=== PATIENT | female | born 1990 | race Caucasian/White ===

== ENCOUNTER 2024-02-16 23:00 | Emergency (ER) | payer MEDICAID, SELFPAY ==
[2024-02-16 23:02] VITALS: BP 118/50; PULSE 118; RESP 16; TEMP 37.6; O2SAT 97
--- NOTE | 2024-02-16 23:38 | ED.GENADUL_ITS ---
Discharge Plan Disposition Patient Disposition: Transfer-Acute Inpatient Care Specific Acute Inpt Facility: [facility] Condition: Serious Discharge Details Clinical Impression: Intravenous drug abuse, Acute hypotension, Back pain, Hyperreflexia, Sepsis Primary Care Provider: Unknown,Unknown ED Provider: Cecille Peralta General Mode of arrival: ambulatory . Date/Time Provider Initiated Documentation: 02/16/24 23:07 . Limitations to Documentation: no limitations . Information obtained by: patient . HPI Narrative: 33yo F with hx of polysubstance use including prior hx IV drug use presenting with acute low back pain. Pain started about 6-7 days ago, is in the low lumbar region, and radiates to both hips and lateral thighs. Initially was just the right hip but now is both. Pain is severe, burning, and makes it hard to walk. Has had similar pain in the past diagnosed as sciatica but never this bad. Went to OSH yesterday and was prescribed flexeril which she last took about two hours ago. No numbness, tingling, or weakness. No urinary incontinence or retention, no bowel changes, no saddle anesthesia. No hx of spinal surgery or instrumentation; did have an epidural with childbirth 2.5 months ago. Treated for MRSA infection/cellulitis in leg several weeks ago, otherwise no recent illness. No trauma or falls. She is otherwise in her usual state of health with no headache, flank pain, neck pain, upper back pain, or other concerns. General Stated Complaint: Nk/Back Pain TRUPTI: 3 Review of Systems Narrative: see HPI Exam Narrative Exam Narrative: General: Alert, tearful Head: Normocephalic, atraumatic Neck: Trachea midline, ?Neck supple. ENT: ?MMM.? Cardiac: ?Tachycardiac, regular, no murmurs appreciated Resp: No respiratory distress. CTAB. Abd: ?Soft, non-distended, nontender : ?No suprapubic tenderness. No CVA tenderness. Extremities: ?No deformities.? No peripheral edema. Back: Left low lumbar & sacral parspinal muscle spasm. Bilateral lumbar and sacral paraspinal tenderness to palpation. No midline tenderness. Neuro: ? GCS 15.? Fluent speech, no dysarthria. Motor- 5/5 strength symmetric bilateral upper and lower extremities Sensation- ?Intact to light touch and symmetric multiple dermatomes including upper and lower extremities. No saddle anesthesia Rectal: Refused Reflexes- RLE: 1+ patellar and achilles LLE:. 3+ patellar, 4+ achilles c 2 beat clonus Course Vital Signs Vital signs: Vital Signs Temperature 37.6 C H 02/16/24 23:02 Pulse 118 H 02/16/24 23:02 Respiratory Rate 16 02/16/24 23:02 Blood Pressure 118/50 L 02/16/24 23:02 Pulse Oximetry 97 02/16/24 23:02 Temperature 37.6 C H 02/16/24 23:02 Temperature Source Tympanic 02/16/24 23:02 Pulse 118 H 02/16/24 23:02 Respiratory Rate 16 02/16/24 23:02 Respiratory Effort Normal, Non-Labored 02/16/24 23:13 Blood Pressure 118/50 L 02/16/24 23:02 Blood Pressure Position Sitting 02/16/24 23:02 Pulse Oximetry 97 02/16/24 23:02 Pain Level 10 02/16/24 23:12 Procedures Central Line Placement Right IJ: Time Out Performed: Yes Patient Placed on Monitor/Pulse Ox: Yes MD Prep: mask, gown and gloves Central Line Prep: Chlorhexidine scrub Local Anesthetic: Lidocaine 2% Amount of anesthesia used (mL): 3 Ultrasound Used for Placement: Yes Patient Tolerated Procedure: other (pt unable to remain still, unsuccessful) Complications: none Left IJ: Time Out Performed: Yes Patient Placed on Monitor/Pulse Ox: Yes MD Prep: mask, gown and gloves Central Line Prep: Chlorhexidine scrub Local Anesthetic: Lidocaine 2% Amount of anesthesia used (mL): 5 Ultrasound Used for Placement: Yes Patient Tolerated Procedure: other (pt unable to remain still, unsuccessful) Complications: hematoma at puncture site Medical Decision Making 33yo F with hx of polysubstance use including prior hx IV drug use presenting with acute low back pain. Pain started about 6-7 days ago, severe/burning, low lumbar and radiates to both hips and lateral thighs. Has had similar pain in the past diagnosed as sciatica but never this bad. Went to OSH yesterday and was prescribed flexeril which she last took about two hours ago. Denies any neurologic symptoms including any bowel/bladder issues. Tachycardiac on arrival though may be 2/t pain, vital signs otherwise reassuring. Palpable paraspinal muscle spasm in low lumbar/sacral region, no midline tenderness. Good strength and sensation BLE however asymmetric reflexes (slightly diminished patellar & achilles on right, hyperreflexia on left. Rectal refused. No fevers or midline pain and pt does have hx of radiculopathy, however in the setting of IVDU concerning for potential spinal epidural abscess (vs malignancy, fracture, MSK). Unable to get MRI overnight. Will treat pain initially with tylenol, toradol, PO valium for spasm and further clarify with labs. Labs reviewed as below, CBC with marked leukocytosis to 33, CMP with no actionable abnormalities, ESR & CRP both significantly elevated. Repeat pressures borderline hypotension, 90's/50's. With back pain, exam findings, and laboratory findings is spinal epidural abscess until proven otherwise. Will treat empirically for epidural abscess/sepsis with vancomycin and ceftriaxone, give IVFB. Blood cultures and lactate ordered. Multiple attempts at PIV access without success; pt refused further PIV but did allow for central line placement. Regrettably this was also unsuccessful; easily able to access IJ however patient not complaint with remaining still unable to place line. Patient then refuses further attempts at access, states she wants to leave. I reviewed with Ms. Felix my concerns that she may have a very serious infection in her spine that could lead to permanent injury, disability/paralysis, or . She verbalized understanding of my concerns; again refused further treatment here and would like to leave. I strongly advised her against this; ultimately she did agree to stay while I arrange for formal transfer to a facility with MRI and spine availability. [facility] at capacity; discussed with Dr. Figueroa on for spine, agrees pt needs MRI but again no capacity at [facility]. [facility] accepts ED to ED, accepting Dr. Rodriguez. BP remains soft with MAP 60-65; again encouraged patient to allow IV access which she again refused. Patient does agree to ambulance transport. Upon arrival of EMS crew, patient now states she refuses ambulance transport. I discussed again my concerns including the fact that I am very worried she could and leave her children motherless. She expressed understanding of my concerns, stated that she would absolutely not go via ambulance because she would not be able to smoke. She is alert, speaking coherently, no slurred speech, ambulates steadily independently. She has capacity and I have no indication to hold her against her will. She states a friend will drive her to [place]. I do not feel this is a safe plan. She again refused transport and requested to be discharged. Left AMA, paperwork signed. I encouraged her to return if she changes her mind, and to proceed with her plan to have a friend drive her to [facility]. [facility] updated regarding event. Patient ambulated steadily out of department; stopped at hotel front desk agent and spoke with soda fountain clerk on the way out. Lab Data Lab results reviewed: Yes I reviewed the patient's lab results. Labs: 02/17/24 00:58 Blood Blood Culture - Pending 02/17/24 00:58 Blood Blood Culture - Pending Laboratory Tests Range/Units 02/17/24 02/17/24 00:28 02:25 WBC (4.4-10.8) 10^3/uL 33.78 H* RBC (3.93-5.22) 10^6/uL 3.31 L Hgb (11.2-15.7) g/dL 9.9 L Hct (36.0-46.0) % 30.7 L MCV (80-95) fL 93 MCH (27.0-33.0) pg 29.9 MCHC (32.0-36.0) % 32.2 RDW (11.7-14.6) % 15.3 H Plt Count (130-400) 10^3/uL 521 H MPV (8.0-11.0) fL 9.1 Immature Gran % % 0.0 Neutrophils % % 83.0 Band Neutrophils % % 3 Lymphocytes % % 7.0 Monocytes % % 4.0 Eosinophils % % 0.0 Basophils % % 0.0 Myelocytes % 3 Nucleated RBC % (0.0-0.3) % 0.0 Absolute Neutrophils (1.2-6.7) 10^3/uL 29.05 H Absolute Lymphocytes (1.2-3.4) 10^3/uL 2.36 Absolute Monocytes (0.1-0.8) 10^3/uL 1.35 H Absolute Eosinophils (0.0-0.7) 10^3/uL 0.00 Absolute Basophils (0.0-0.2) 10^3/uL 0.00 RBC Morphology Normal ESR (0-20) mm/hr 86 H Sodium (136-145) mmol/L 132 L Potassium (3.5-5.1) mmol/L 3.6 Chloride (98-107) mmol/L 95 L Carbon Dioxide (21.0-32.0) mmol/L 25.0 Anion Gap (3-11) mmol/L 12.0 H BUN (7-18) mg/dL 16 Creatinine (0.55-1.02) mg/dL 0.9 Est GFR (CKD-EPI 2020) (mL/min/1.73m2) 86.57 Glucose (74-106) mg/dL 165 H Calcium (8.5-10.1) mg/dL 8.8 Total Bilirubin (0.2-1.0) mg/dL 0.4 AST (15-37) U/L 45 H ALT (14-59) U/L 41 Alkaline Phosphatase (46-116) U/L 397 H C-Reactive Protein (<or=0.5) mg/dL > 25.00 H Total Protein (6.4-8.2) g/dL 7.6 Albumin (3.4-5.0) g/dL 2.1 L Beta HCG, Quant (1-3) mIU/mL < 1 L Urine Color (Yellow) Dark Yellow Urine Clarity (Clear) Sl Cloudy Urine pH (5-8) 6.0 Ur Specific [place] (1.005-1.025) 1.020 Urine Protein (Neg-Trace) mg/dL 100 H Urine Ketones (Negative) mg/dL Negative Urine Blood (Negative) Negative Urine Nitrite (Negative) Negative Urine Bilirubin (Negative) Small H Urine Urobilinogen (Up to 0.2) mg/dL 4.0 H Ur Leukocyte Esterase (Negative) Negative Urine RBC (0-2) HPF 3-5 H Urine WBC (0-5) HPF 5-10 Ur Epithelial Cells (Negative) HPF Many Urine Crystals (Negative) HPF Negative Urine Bacteria (Negative) HPF Few Urine Casts (Negative) LPF 0-2 Coarse Granular Urine Mucus (Negative) Negative Ur Culture Indicated? No/Sq. Contamination Urine Glucose (Negative) mg/dL Negative Quality:SDOH Health Related Social Needs: No Data to Display PFSH All Active Problems Sepsis (Acute) Hyperreflexia (Acute) Back pain (Acute) Acute hypotension (Acute) Intravenous drug abuse (Acute) Social History Smoking/Tobacco Use Status: Current every day Tobacco Type: cigarettes Smoking risk assessment performed?: Yes Alcohol Intake: current Alcohol Intake frequency: holidays/special occasions only Alcohol type: hard liquor Drug use: Daily Substance use type: crack/cocaine Details: last use of crack 02/16/24 Housing: house Do you feel safe at home: Yes Do you feel safe in your relationship?: Yes
[2024-02-16 23:43] VITALS: TEMP 37.7
[2024-02-16] MEDS: Acetaminophen 500 MG TAB 1000 MG PO (23:53)
[2024-02-16] MEDS: Ketorolac 15 MG/ML VIAL IM (23:53)
[2024-02-16] MEDS: diazePAM 5 MG TAB PO (23:53)
[2024-02-16] MEDS: Lidocaine 5% Patch 2 PATCH TP (23:53)
[2024-02-17 00:34] LABS: Abs Immature Grans 2.13 10^3/uL (0.0-0.06); HCT 30.7 % (36.0-46.0); HGB 9.9 g/dL (11.2-15.7); MCH 29.9 pg (27.0-33.0); MCHC 32.2 % (32.0-36.0); MCV 93 fL (80-95); MPV 9.1 fL (8.0-11.0); Platelet Count 521 10^3/uL (130-400); RBC 3.31 10^6/uL (3.93-5.22); RDW 15.3 % (11.7-14.6); RDW-SD 52.5 fL
[2024-02-17 00:36] LABS: ESR 86 mm/hr (0-20)
[2024-02-17 00:38] LABS: WBC 33.78 10^3/uL (4.4-10.8)
[2024-02-17 00:47] LABS: Absolute Lymphocyte Count 2.36 10^3/uL (1.2-3.4); Absolute Monocyte Count 1.35 10^3/uL (0.1-0.8)
[2024-02-17 00:48] LABS: Absolute Neutrophil Count 29.05 10^3/uL (1.2-6.7); Bands % 3 %; Myelocytes % 3
[2024-02-17 00:49] LABS: ALT 41 U/L (14-59); AST 45 U/L (15-37); Albumin 2.1 g/dL (3.4-5.0); Alkaline Phosphatase 397 U/L (46-116); BUN 16 mg/dL (7-18); Bilirubin, Total 0.4 mg/dL (0.2-1.0); CREATININE 0.9 mg/dL (0.55-1.02); Calcium 8.8 mg/dL (8.5-10.1); Chloride 95 mmol/L (98-107); Estimated GFR 86.57 (mL/min/1.73m2); Glucose 165 mg/dL (74-106); Potassium 3.6 mmol/L (3.5-5.1); Sodium 132 mmol/L (136-145); Total Protein 7.6 g/dL (6.4-8.2)
[2024-02-17 00:50] LABS: C-Reactive Protein > 25.00 mg/dL (<or=0.5); Diff Comment Manual Differential; RBC Morphology Normal
[2024-02-17 00:53] VITALS: BP 91/53; PULSE 100; RESP 14; O2SAT 94
[2024-02-17 01:33] LABS: HCG Quant, Pregnancy < 1 mIU/mL (1-3)
[2024-02-17 02:16] VITALS: BP 95/52; PULSE 105; RESP 18; O2SAT 95
[2024-02-17 02:38] LABS: Bilirubin Small (Negative); Blood Negative (Negative); Clarity Sl Cloudy (Clear); Glucose Negative (Negative); Ketones Negative (Negative); Leukocyte Esterase Negative (Negative); Nitrite Negative (Negative)
[2024-02-17 02:45] LABS: Bacteria Few HPF (Negative); C & S Indicated? No/Sq. Contamination; Casts 0-2 Coarse Granular LPF (Negative); Crystals Negative HPF (Negative); Epithelial Cells Many HPF (Negative); Mucus Negative (Negative)
[2024-02-17 03:22] VITALS: BP 90/58
--- NOTE | 2024-02-17 03:23 | NUR.NOTE ---
Nursing Note: This RN was present for conversation with patient and Dr. Peralta where Dr. Peralta discussed transfer to [facility] ED via [facility] due to the seriousness of her condition. Dr. Peralta stated she was concerned that the patient may and the patient stated thats not going to work on me. The patient declined transport due to not being able to smoke on the way. AMA form was signed by the patient. The patient was alert, coherent, no slurred speech, steady on her feet. The patient appeared to have capacity to make this decision.
--- NOTE | 2024-02-17 12:03 | NUR.NOTE ---
Addendum entered by Magaly Soria 02/17/24 13:28: [facility] called back and discovered in the nursing note and provider note that the patient left AMA. They are now aware of this. Original Note: [id number] [facility] transfer center called asking about the disposition of the patient. They did not have her in their system. I called [facility] and Eugenio stated that the crew that went on the transfer this moring had returned. I relayed to [facility] transfer center this information and read from the provider note the disposition of the patient. Nursing Note:
== END 2024-02-17 03:24 | disposition short-term general hospital (02) ==
PROVIDERS: Emergency Provider Student in an Organized Health Care Education/Training Program
DX: F19.10 Other psychoactive substance abuse, uncomplicated (principal); I95.9 Hypotension, unspecified; R29.2 Abnormal reflex; A41.9 Sepsis, unspecified organism; F17.210 Nicotine dependence, cigarettes, uncomplicated; Z53.29 Procedure and treatment not carried out because of patient's decision for other reasons
CPT/HCPCS: 36415; 36573; 80053; 85652; 87040; 96372; 99285; 81003; 81015; 83605; 84702; 85025; 86140; J1885; J2003